=== PATIENT | female | born 1965 ===

== ENCOUNTER 2016-11-26 16:30 | Emergency (ER) | payer OTHER ==
[2016-11-26 16:30] VITALS: BMI 35.4
[2016-11-26 16:36] VITALS: BP 124/84; PULSE 72; RESP 18; TEMP 97.4; O2SAT 97
--- NOTE | 2016-11-26 16:58 | ED PDOC ---
HPI: CCC, URI, Sore Throat Time Seen by Provider: 11/26/16 16:38 Chief Complaint (Nursing): Headache Chief Complaint (Provider): cough, cold, congestion History Per: Patient History/Exam Limitations: no limitations Onset/Duration Of Symptoms: Days (x2 weeks) Current Symptoms Are (Timing): Still Present Additional Complaint(s): Milly Thomson is 50 year old female with previous medical history of hyperlipidema, hypothyroidism, and bronchitis, who presents to the emergency department with complaints of upper respiratory symptoms including frontal headaches, sinus pain, throat pain, nasal congestion, rhinorrhea, and productive cough with green phlegm ongoing for 2 weeks. Denies any fever, chills , nausea, vomiting, diarrhea, shortness of breath, chest pain, neck pain/ rigidity, back pain, numbness or tingling. Recently finished full course of Amoxicillin with no relief of symptoms from Dr. Sena who she saw. Pt. headache not worst in her life. PMD: Dr Deric Sena Past Medical History Reviewed: Historical Data, Nursing Documentation, Vital Signs Vital Signs: Last Vital Signs Temp 97.4 F L 11/26/16 16:33 Pulse 72 11/26/16 16:33 Resp 18 11/26/16 16:33 BP 124/84 11/26/16 16:33 Pulse Ox 97 11/26/16 17:20 - Medical History PMH: Anemia, Hypercholesterolemia, Hypothyroidism, Migraine Denies: Chronic Kidney Disease - Surgical History Surgical History: Cholecystectomy, Endoscopy - Family History Family History: States: Unknown Family Hx - Home Medications Home Medications: Ambulatory Orders Medication Instructions Recorded Cholecalciferol [Vitamin D 1000 IU] 1,000 units PO DAILY 04/26/16 Fenofibrate,Micronized [Lofibra] 134 mg PO HS 04/26/16 Ibuprofen [Motrin] 400 mg PO ONCE PRN 04/26/16 Levothyroxine [Synthroid] 100 mcg PO DAILY 04/26/16 Naproxen [Naprosyn] 500 mg PO BID PRN 04/26/16 Omeprazole 20 mg PO DAILY 04/26/16 Azithromycin [Zithromax] 250 mg PO DAILY 5 Days 11/26/16 Ibuprofen [Motrin] 600 mg PO TID 7 Days 11/26/16 - Allergies Allergies/Adverse Reactions: Allergies Allergy/AdvReac Type Severity Reaction Status Date / Time No Known Allergies Allergy Verified 11/26/16 16:33 Review of Systems ROS Statement: Except As Marked, All Systems Reviewed And Found Negative Constitutional: Negative for: Fever, Chills ENT: Positive for: Nose Congestion, Throat Pain, Other (frontal sinus pain) Cardiovascular: Negative for: Chest Pain, Palpitations Respiratory: Positive for: Cough (productive with green phlegm), Sputum. Negative for: Shortness of Breath Gastrointestinal: Negative for: Nausea, Diarrhea Neurological: Negative for: Weakness, Numbness, Other (tingling) Physical Exam - Reviewed Nursing Documentation Reviewed: Yes Vital Signs Reviewed: Yes - Physical Exam Appears: Positive for: Well, Non-toxic, No Acute Distress Head Exam: Positive for: ATRAUMATIC, NORMAL INSPECTION, NORMOCEPHALIC Skin: Positive for: Normal Color, Warm, Dry. Negative for: Rash Eye Exam: Positive for: Normal appearance, EOMI, PERRL. Negative for: Nystagmus ENT: Positive for: TM Is/Are (within normal limits bilaterally), Sinus Pain/ Drainage (bilateral maxillary tenderness), Nasal Congestion. Negative for: Pharyngeal Erythema, Tonsillar Exudate, Tonsillar Swelling Neck: Positive for: Normal, Painless ROM, Supple Cardiovascular/Chest: Positive for: Regular Rate, Rhythm Respiratory: Positive for: Normal Breath Sounds. Negative for: Crackles, Rales , Rhonchi, Wheezing Gastrointestinal/Abdominal: Positive for: Normal Exam, Bowel Sounds, Soft. Negative for: Tenderness Back: Positive for: Normal Inspection. Negative for: L CVA Tenderness, R CVA Tenderness Extremity: Positive for: Normal ROM, Capillary Refill (<2 seconds). 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 Negative for: Motor/Sensory Deficits, Aphasia - ECG O2 Sat by Pulse Oximetry: 97 (RA) Pulse Ox Interpretation: Normal Medical Decision Making Medical Decision Making: Initial impression: URI Initial plan: Motrin 600mg PO reevaluation 16:[address] Deric Sena who agrees with diagnosis of URI and comfortable to discharge patient with Zithromax RX. Advised for patient to follow up in office on Tuesday. He knows pt. well and feels is a cold. AAOx3. Pain free. Tolerated PO. Upon provider reevaluation patient is feeling better, is medically stable, and requires no further treatment in the ED at this time. Patient will be discharged home with Rx for zithromax. Counseling was provided and all questions were answered regarding diagnosis and need for follow up with PMD. There is agreement to discharge plan. Return if symptoms persist or worsen. Clinical Impression: URI Scribe Attestation: Documented by Mary Galvez, acting as a scribe for Daron Lutz MD. Provider Scribe Attestation: All medical record entries made by the Scribe were at my direction and personally dictated by me. I have reviewed the chart and agree that the record accurately reflects my personal performance of the history, physical exam, medical decision making, and the department course for this patient. I have also personally directed, reviewed, and agree with the discharge instructions and disposition. Disposition - Clinical Impression Clinical Impression: URI (upper respiratory infection) - Patient ED Disposition Is Patient to be Admitted: No Doctor Will See Patient In The: Office Counseled Patient/Family Regarding: Diagnosis, Need For Followup, Rx Given - Disposition Referrals: Deric Sena MD [Staff Provider] - 11/29/16 Disposition: Routine/Home Disposition Time: 17:26 Condition: STABLE Additional Instructions: Return if not better in 3 days. Call your doctor and see him on Tuesday. Prescriptions: Azithromycin [Zithromax] 250 mg PO DAILY 5 Days Ibuprofen [Motrin] 600 mg PO TID 7 Days Instructions: Upper Respiratory Infection (ED) Forms: [employer] (Mauritian)
== END 2016-11-26 17:37 | disposition home or self-care (01) ==
LOC: H.ER 16:30
DX: J06.9 Acute upper respiratory infection, unspecified (principal); R51 Headache